=== PATIENT | male | born 1950 | race Caucasian/White ===

== ENCOUNTER 2017-04-11 09:23 | Inpatient (IN) | payer BC ==
[2017-04-11 10:14] LABS: ADD MAN DIFF? NO
[2017-04-11 10:20] LABS: BASOPHIL # 0.1 10^3/ul (0.0-0.1); BASOPHILS % 0.7 % (0.0-2.0); EOSINOPHILS # 0.1 10^3/ul (0.0-0.5); EOSINOPHILS % 0.9 % (0.0-7.0); HEMATOCRIT 42.1 % (42.0-52.0); HEMOGLOBIN 13.9 g/dl (14.0-18.0); LYMPHOCYTES # 1.3 10^3/ul (0.8-2.9); LYMPHOCYTES % 13.7 % (15.0-51.0); MEAN CORPUSCULAR HEMOGLOBIN 29.8 pg (29.0-33.0); MEAN CORPUSCULAR VOLUME 90.1 fl (82.0-101.0); MEAN PLATELET VOLUME 12.5 fl (7.4-10.4); MONOCYTE # 0.8 10^3/ul (0.3-0.9); MONOCYTES % 7.9 % (0.0-11.0); NEUTROPHIL # 7.3 10^3/ul (1.6-7.5); NEUTROPHILS % 76.4 % (39.0-77.0); PLATELET COUNT 127 10^3/UL (140-415); RED BLOOD COUNT 4.67 10^6/ul (4.70-6.10); RED CELL DISTRIBUTION WIDTH 14.6 % (11.5-14.5)
[2017-04-11 10:20] LABS: WHITE BLOOD COUNT 9.5 10^3/ul (4.8-10.8)
[2017-04-11 10:36] LABS: INR 1.09; PROTIME 14.2 Sec (11.9-14.9); PT RATIO 1.1
[2017-04-11 10:37] LABS: PARTIAL THROMBOPLASTIN TIME 33.7 Sec (25.0-35.0)
[2017-04-11 10:47] LABS: ALANINE AMINOTRANSFERASE 63 IU/L (13-69); ALBUMIN 4.4 g/dl (3.3-4.9); ALBUMIN/GLOBULIN RATIO 1.41; ALKALINE PHOSPHATASE 84 IU/L (42-121); ANION GAP 17 (8-16); ASPARTATE AMINO TRANSFERASE 44 IU/L (15-46); BILIRUBIN,INDIRECT 0.7 mg/dl (0-1.1); BILIRUBIN,TOTAL 0.7 mg/dl (0.2-1.3); BLOOD UREA NITROGEN 18 mg/dl (7-20); CALCIUM 9.8 mg/dl (8.4-10.2); CARBON DIOXIDE 22 mmol/L (21-31); CHLORIDE 106 mmol/L (97-110); CREATININE 0.71 mg/dl (0.61-1.24); GLUCOSE 141 mg/dl (70-220); POTASSIUM 4.1 mmol/L (3.5-5.1); SODIUM 141 mmol/L (135-144); TOTAL PROTEIN 7.5 g/dl (6.1-8.1)
[2017-04-11] MEDS: NITROGLYCERIN 2% 1 GM OINT PKT TD (10:53)
[2017-04-11] MEDS: FUROSEMIDE 40 MG INJ IV ×2 (10:53→17:14)
[2017-04-11 10:59] LABS: B-TYPE NATRIURETIC PEPTIDE 6060 PG/ML (0-125); TROPONIN-I 0.021 ng/ml (0.00-0.12)
[2017-04-11] MEDS: ASPIRIN 81 MG TAB PO (11:09)
[2017-04-11] MEDS ORDERED: ONDANSETRON 4 MG INJ IV ×2 (12:00→23:00)
[2017-04-11] MEDS ORDERED: ACETAMINOPHEN 325 MG TAB PO ×2 (12:00→23:00)
[2017-04-11] MEDS: SPIRONOLACTONE 25 MG TAB PO (17:12)
[2017-04-11 22:55] LABS: CREATINE KINASE 44 IU/L (23-200)
[2017-04-11] MEDS ORDERED: DOCUSATE SODIUM 100 MG CAP PO (23:00)
[2017-04-11] MEDS ORDERED: NACL 0.9% 3 ML SYG IV (23:00)
[2017-04-11] MEDS ORDERED: ZOLPIDEM 5 MG TAB PO (23:00)
[2017-04-11 23:05] LABS: CK INDEX 2.8
[2017-04-11 23:14] LABS: CK-MB 1.22 ng/ml (0.0-2.4)
[2017-04-11 23:36] LABS: TROPONIN-I 0.037 ng/ml (0.00-0.12)
[2017-04-12] MEDS: ATORVASTATIN 40 MG TAB PO ×2 (00:56→20:41)
[2017-04-12] MEDS: LISINOPRIL 5 MG TAB PO ×2 (00:58→08:55)
[2017-04-12 05:51] LABS: ADD MAN DIFF? NO
[2017-04-12 06:01] LABS: BASOPHIL # 0.1 10^3/ul (0.0-0.1); EOSINOPHILS # 0.3 10^3/ul (0.0-0.5); EOSINOPHILS % 2.2 % (0.0-7.0); HEMATOCRIT 43.3 % (42.0-52.0); HEMOGLOBIN 14.2 g/dl (14.0-18.0); LYMPHOCYTES % 17.5 % (15.0-51.0); MEAN CORPUSCULAR HEMOGLOBIN 29.3 pg (29.0-33.0); MEAN CORPUSCULAR HGB CONC 32.8 g/dl (32.0-37.0); MEAN CORPUSCULAR VOLUME 89.3 fl (82.0-101.0); MEAN PLATELET VOLUME 12.6 fl (7.4-10.4); MONOCYTE # 1.1 10^3/ul (0.3-0.9); NEUTROPHIL # 7.8 10^3/ul (1.6-7.5); NEUTROPHILS % 68.9 % (39.0-77.0); PLATELET COUNT 126 10^3/UL (140-415); RED BLOOD COUNT 4.85 10^6/ul (4.70-6.10); RED CELL DISTRIBUTION WIDTH 14.4 % (11.5-14.5)
[2017-04-12 06:01] LABS: WHITE BLOOD COUNT 11.3 10^3/ul (4.8-10.8)
[2017-04-12 06:16] LABS: ANION GAP 15 (8-16); BLOOD UREA NITROGEN 23 mg/dl (7-20); CALCIUM 9.9 mg/dl (8.4-10.2); CARBON DIOXIDE 28 mmol/L (21-31); CHLORIDE 104 mmol/L (97-110); GLUCOSE 104 mg/dl (70-220); POTASSIUM 4.3 mmol/L (3.5-5.1); SODIUM 143 mmol/L (135-144)
[2017-04-12 06:28] LABS: CREATINE KINASE 54 IU/L (23-200)
[2017-04-12] MEDS: FUROSEMIDE 20 MG INJ IV ×2 (06:29→17:36)
[2017-04-12] MEDS: LEVOFLOXACIN 500 MG TAB PO (06:29)
[2017-04-12 06:38] LABS: CK INDEX 2.3; TROPONIN-I 0.049 ng/ml (0.00-0.12)
[2017-04-12 07:02] LABS: CK-MB 1.24 ng/ml (0.0-2.4)
[2017-04-12] MEDS: POTASSIUM CHLORIDE (SR) 20 MEQ TAB PO (08:55)
[2017-04-12] MEDS: ASPIRIN (EC) 81 MG TAB PO (08:55)
[2017-04-12] MEDS: FAMOTIDINE 20 MG TAB PO ×2 (08:55→20:41)
[2017-04-12] MEDS: SPIRONOLACTONE 25 MG TAB PO (08:56)
[2017-04-12] MEDS: METOPROLOL 25 MG TAB PO (08:56)
[2017-04-12] MEDS ORDERED: ASPIRIN 81 MG TAB PO (09:00)
[2017-04-12] MEDS: ENOXAPARIN 30 MG/0.3 ML SYG SC (09:01)
[2017-04-13] MEDS: LEVOFLOXACIN 500 MG TAB PO (06:18)
[2017-04-13] MEDS: FUROSEMIDE 20 MG INJ IV (06:18)
[2017-04-13 08:19] LABS: ADD MAN DIFF? NO
[2017-04-13 08:25] LABS: BASOPHIL # 0.1 10^3/ul (0.0-0.1); BASOPHILS % 1.1 % (0.0-2.0); EOSINOPHILS # 0.3 10^3/ul (0.0-0.5); EOSINOPHILS % 3.1 % (0.0-7.0); HEMATOCRIT 42.6 % (42.0-52.0); HEMOGLOBIN 14.1 g/dl (14.0-18.0); LYMPHOCYTES # 1.9 10^3/ul (0.8-2.9); LYMPHOCYTES % 19.4 % (15.0-51.0); MEAN CORPUSCULAR HEMOGLOBIN 29.7 pg (29.0-33.0); MEAN CORPUSCULAR HGB CONC 33.1 g/dl (32.0-37.0); MEAN CORPUSCULAR VOLUME 89.7 fl (82.0-101.0); MEAN PLATELET VOLUME 12.9 fl (7.4-10.4); MONOCYTES % 10.5 % (0.0-11.0); NEUTROPHIL # 6.5 10^3/ul (1.6-7.5); NEUTROPHILS % 65.5 % (39.0-77.0); PLATELET COUNT 139 10^3/UL (140-415); RED BLOOD COUNT 4.75 10^6/ul (4.70-6.10); RED CELL DISTRIBUTION WIDTH 14.6 % (11.5-14.5)
[2017-04-13 08:25] LABS: WHITE BLOOD COUNT 9.9 10^3/ul (4.8-10.8)
[2017-04-13 08:45] LABS: ANION GAP 18 (8-16); BLOOD UREA NITROGEN 27 mg/dl (7-20); CALCIUM 9.9 mg/dl (8.4-10.2); CARBON DIOXIDE 27 mmol/L (21-31); CHLORIDE 102 mmol/L (97-110); CREATININE 0.86 mg/dl (0.61-1.24); GLUCOSE 106 mg/dl (70-220); POTASSIUM 4.3 mmol/L (3.5-5.1); SODIUM 143 mmol/L (135-144)
[2017-04-13] MEDS: SPIRONOLACTONE 25 MG TAB PO (09:30)
[2017-04-13] MEDS: FAMOTIDINE 20 MG TAB PO ×2 (09:30→21:13)
[2017-04-13] MEDS: LISINOPRIL 5 MG TAB PO (09:31)
[2017-04-13] MEDS: ASPIRIN (EC) 81 MG TAB PO (09:31)
[2017-04-13] MEDS: POTASSIUM CHLORIDE (SR) 20 MEQ TAB PO (09:31)
[2017-04-13] MEDS: ENOXAPARIN 30 MG/0.3 ML SYG SC (09:33)
[2017-04-13] MEDS: FUROSEMIDE 20 MG TAB PO (18:26)
[2017-04-13] MEDS: ATORVASTATIN 40 MG TAB PO (21:13)
[2017-04-14] MEDS: LEVOFLOXACIN 500 MG TAB PO (06:16)
[2017-04-14] MEDS: FUROSEMIDE 20 MG TAB PO (06:17)
[2017-04-14 07:11] LABS: ADD MAN DIFF? NO
[2017-04-14 07:19] LABS: WHITE BLOOD COUNT 8.8 10^3/ul (4.8-10.8)
[2017-04-14 07:19] LABS: BASOPHIL # 0.1 10^3/ul (0.0-0.1); BASOPHILS % 1.1 % (0.0-2.0); EOSINOPHILS # 0.3 10^3/ul (0.0-0.5); EOSINOPHILS % 2.8 % (0.0-7.0); HEMATOCRIT 39.7 % (42.0-52.0); LYMPHOCYTES % 23.2 % (15.0-51.0); MEAN CORPUSCULAR HGB CONC 32.7 g/dl (32.0-37.0); MEAN CORPUSCULAR VOLUME 91.5 fl (82.0-101.0); MEAN PLATELET VOLUME 12.6 fl (7.4-10.4); MONOCYTES % 11.1 % (0.0-11.0); NEUTROPHIL # 5.4 10^3/ul (1.6-7.5); NEUTROPHILS % 61.5 % (39.0-77.0); PLATELET COUNT 130 10^3/UL (140-415); RED BLOOD COUNT 4.34 10^6/ul (4.70-6.10); RED CELL DISTRIBUTION WIDTH 14.3 % (11.5-14.5)
[2017-04-14 07:35] LABS: ANION GAP 14 (8-16); BLOOD UREA NITROGEN 25 mg/dl (7-20); CALCIUM 9.1 mg/dl (8.4-10.2); CARBON DIOXIDE 26 mmol/L (21-31); CHLORIDE 105 mmol/L (97-110); GLUCOSE 97 mg/dl (70-220); POTASSIUM 4.3 mmol/L (3.5-5.1); SODIUM 141 mmol/L (135-144)
[2017-04-14 07:35] LABS: MAGNESIUM 1.9 mg/dl (1.7-2.5)
[2017-04-14] MEDS: POTASSIUM CHLORIDE (SR) 20 MEQ TAB PO (09:40)
[2017-04-14] MEDS: FAMOTIDINE 20 MG TAB PO (09:41)
[2017-04-14] MEDS: ASPIRIN (EC) 81 MG TAB PO (09:41)
[2017-04-14] MEDS: LISINOPRIL 5 MG TAB PO (09:41)
[2017-04-14] MEDS: SPIRONOLACTONE 25 MG TAB PO (09:42)
[2017-04-14] MEDS: ENOXAPARIN 30 MG/0.3 ML SYG SC (09:42)
[2017-04-14] MEDS: MAGNESIUM SULFATE 2 GM/50 ML 50 ML IVPB (13:25)
== END 2017-04-14 17:30 | disposition home or self-care (01) | DRG 291 ==
LOC: E/R 09:23 → MS4 11:35
DX: I11.0 Hypertensive heart disease with heart failure (principal); J18.9 Pneumonia, unspecified organism; D69.6 Thrombocytopenia, unspecified; I42.9 Cardiomyopathy, unspecified; Z95.2 Presence of prosthetic heart valve; I50.23 Acute on chronic systolic (congestive) heart failure; I25.10 Atherosclerotic heart disease of native coronary artery without angina pectoris; Z95.1 Presence of aortocoronary bypass graft; Z87.891 Personal history of nicotine dependence
CPT/HCPCS: 36415; 71045; 80048; 80053; 82550; 82553; 83735; 83880; 84484; 85025; 85610; 85730; 93005; 93306; 96374; 96376; 99285-25; J1940